=== PATIENT | female | born 1990 | race Caucasian/White ===

== ENCOUNTER 2023-02-24 15:53 | Emergency (ER) | payer OTHER ==
[2023-02-24 16:03] VITALS: BP 111/70; PULSE 91; RESP 18; TEMP 98.5; BMI 23.8
== END 2023-02-24 17:49 | disposition home or self-care (01) ==
LOC: JERFT 15:53
DX: Z48.02 Encounter for removal of sutures (principal); N64.4 Mastodynia; Z98.82 Breast implant status
CPT/HCPCS: 99282-25